=== PATIENT | female | born 1955 ===

== ENCOUNTER 2019-07-27 10:04 | Day surgery (SDC) | payer OTHER | END 2019-07-27 16:00 | disposition home or self-care (01) | LOC: AMB-ENDOS 10:04 | DX: D12.0 Benign neoplasm of cecum (principal); D12.2 Benign neoplasm of ascending colon; D12.5 Benign neoplasm of sigmoid colon; K57.30 Diverticulosis of large intestine without perforation or abscess without bleeding; K64.8 Other hemorrhoids ==

== ENCOUNTER 2022-06-25 09:14 | Day surgery (SDC) | payer OTHER | END 2022-06-25 14:45 | disposition home or self-care (01) | LOC: AMB-ENDOS 09:14 | PROVIDERS: ATTEND Colon & Rectal Surgery | DX: D12.3 Benign neoplasm of transverse colon (principal); D12.0 Benign neoplasm of cecum; K64.4 Residual hemorrhoidal skin tags; Z88.6 Allergy status to analgesic agent; Z88.8 Allergy status to other drugs, medicaments and biological substances ==